=== PATIENT | male | born 1960 ===

== ENCOUNTER → 2018-04-10 | Outpatient (CLI) | payer BC ==
[~2018-04-10] MED LIST: AMLO5TAB7 PO; BUPIVACAINE MPF 0.5% 30 ML VIAL. ONE; BUPR100T8 PO; DICL50TA2 PO; IOHEXOL 180 MG/ML 10 ML VIAL. ONE; LIDOCAINE 2% PF 2ML VIAL. ONE; methylPREDNISolone ACETATE 40 MG/ML VIAL. ONE; methylPREDNISolone ACETATE 80 MG/ML VIAL. ONE
--- NOTE | 2018-04-10 13:41 | PAIN ---
DATE OF SERVICE: 04/10/2018 INITIAL CONSULTATION FOR PAIN CLINIC CHIEF COMPLAINT: Low back pain. HISTORY OF PRESENT ILLNESS: This is a 57-year-old male who presents with history of severe low back pain for approximately 1-2 years. The patient reports it is becoming worst over the past several months, worse with sitting for prolonged periods, especially driving a car and better with standing but initially but then becomes more noticeable with standing for more than about 15-20 minutes. The patient reports it is constant, throbbing, aching, across the low back, right side essentially equal to left. The patient has had some physical therapy in the past as well as chiropractic treatment exercise, which is ongoing. The patient had some trigger point injections and epidurals about 10 years ago and eventually had a lumbar diskectomy. The patient reports has been taking ibuprofen as well as diclofenac, both of which do help by about 20%-25% to decrease the pain. The patient has been doing some stretching exercises on his own recently but without significant improvement. The patient did have MRI scan of the lumbar spine showing degenerative disk disease, most pronounced broad-based but shallow disk herniation at L4-L5, multilevel facet arthrosis in lower lumbar spine with no high grade neural foraminal stenosis, however, mild bilateral neural foraminal stenosis at L3-L4 and L4-L5. The patient rates his disability rate from 0-10, 10 being the worst, is a 3 with family home responsibilities and sexual behavior, 8 with recreation, 7 with life support activities and occupation, 2 with social activity and 1 with self-care activities. The patient reports no loss of motor function but legs do seem to fatigue to a moderate extent with activity but no loss of motor function or stricture following. PAST MEDICAL HISTORY: Significant for hypertension and also arthritis. The patient also has migraine affective disorder. PAST SURGICAL HISTORY: Previous surgeries include tonsillectomy in childhood and lumbar diskectomy in 2007. CURRENT MEDICATIONS: Include bupropion, diclofenac and amlodipine. ALLERGIES: The patient has no known drug allergies. FAMILY HISTORY: Significant for no major medical problems or conditions he is aware of. SOCIAL HISTORY: The patient does not smoke, drinks 1-2 alcoholic drinks a day, does not use any illegal, illicit or recreational drugs. 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 REVIEW OF SYSTEMS: The patient's review of systems is positive for those items mentioned in history of present illness. All systems reviewed and otherwise negative. It is complete, full and well documented on the patient's chart. PHYSICAL EXAMINATION: VITAL SIGNS: His blood pressure 141/94, pulse is 75, respirations 18, temperature is 98.4 degrees Fahrenheit, height is 5 feet -1/2 inches and weight is 198 pounds. GENERAL: The patient is awake, alert, oriented, appropriate and very pleasant demeanor. HEENT: Head shows normocephalic and atraumatic. Extraocular movements are intact and symmetrical. Oral cavity: Mucous membranes moist and pink. The patient has full moustache and barbosa. NECK: Shows anterior throat supple without palpable lymphadenopathy noted. Swallow reflex is symmetrical. CHEST: Shows normal on inspection. Breath sounds clear to auscultation bilaterally. HEART: Shows S1 and S2 clear. No murmurs auscultated. ABDOMEN: Soft, nontender and nondistended. No palpable organomegaly is noted. No rebound or guarding demonstrated. BACK: Shows spine grossly in the midline. Normal appearing thoracic kyphosis and lumbar lordotic curvature. He has a well-healed surgical scar noted in the lumbar distribution. Lumbar paraspinous muscle shows symmetrical on inspection and palpation shows some moderate tenderness only in the low lumbar distribution bilaterally and only diffusely without radiation, without trigger points. The patient has good rotational motion of the lumbar spine with some moderate tenderness with bilateral rotation greater than 10 degrees, right and left as well especially with extension greater than 10 degrees with significant pain bilaterally, the lumbar, low lumbar paraspinous bilaterally. Forward flexion 45 degrees decreases this pain, is not uncomfortable for the patient. No tenderness over the sacrum or sacroiliac regions over the spinous processes. EXTREMITIES: Lower extremities show deep tendon reflexes at 2+ in the patellar, 1+ tendo-calcaneus tendons. Motor exam is strong with 5/5 dorsiflexion, extension, quadriceps and hamstring flexion. Peripheral pulses are 1+ posterior tibial. No peripheral edema is noted. Straight leg raise noted to be negative bilaterally as is Gaenslen's and Brenden's maneuvers are negative bilaterally. The patient is able to stand, stand on his toes without difficulty or loss of balance, walks with a normal-appearing gait and does not appear to favor the right lower extremity in a significant extent. SKIN: Shows normal, warm and dry. Good turgor. No edema, sores or rashes. IMPRESSION: 1. This is a 57-year-old male with approximate 1-2 year history of increasing low back pain without significant radiating pain at this time. 2. MRI scan of the lumbar spine as noted. 3. Hypertension. 4. Arthritis. PLAN: Options were discussed with the patient including conservative medical management, physical therapy, interventional techniques and he would like to pursue interventional techniques. We discussed bilateral L4-L5 and L5-S1 facet joint injections using description as well as anatomical models to describe the procedure. Risks were then discussed including, but not limited to bleeding, infection, possibility of epidural hematoma and subsequent neurological compromise, dural puncture, headaches, spinal cord and/or nerve damage, side effects of steroid medication and poor results regarding pain control. The patient understands and wished to proceed. The patient will return to the clinic in approximately 2 weeks for followup, was counseled as to return appointment, activity level and side effects to be aware of. DIAGNOSIS: Lumbar and lumbosacral spondylosis with degenerative disk disease. PROCEDURE: Bilateral L4-L5 and L5-S1 facet joint injections using C-arm fluoroscopic guidance under sterile prep and drape using local anesthetic. MEDICATION INJECTED: A total of 120 mg Depo-Medrol plus 4 mL of 0.25% bupivacaine and a total of 2 mL Isovue for contrast. CONDITION AT DISCHARGE: Stable. The patient tolerated the procedure well and had no complications. VAL OCAMPO MD DR: CARTER/bob JOB#: [id number] / [id number]
== END | disposition home or self-care (01) ==
LOC: PNCL 10:26
PROVIDERS: ATTEND Anesthesiology
DX: M47.816 Spondylosis without myelopathy or radiculopathy, lumbar region (principal); M51.36 Other intervertebral disc degeneration, lumbar region; I10 Essential (primary) hypertension; M19.90 Unspecified osteoarthritis, unspecified site; Z79.899 Other long term (current) drug therapy
CPT/HCPCS: 64493; 64494; J1030; J1040; J2001; J3490; Q9965

== ENCOUNTER → 2018-04-25 | Outpatient (CLI) | payer BC ==
[~2018-04-25] MED LIST changes: +BUPIVACAINE MPF 0.25% 10 ML VIAL. ONE; -BUPIVACAINE MPF 0.5% 30 ML VIAL. ONE
--- NOTE | 2018-04-25 17:13 | PAIN ---
DATE OF SERVICE: 04/25/2018 DIAGNOSES: Lumbar degenerative disk disease with lumbar and lumbosacral spondylosis. HISTORY OF PRESENT ILLNESS: The patient is a 57-year-old male who returns for followup status post bilateral lumbar facet joint injections, L4-L5 and L5-S1. He reports about 90% improvement up to currently. The patient reports he was doing very well until the last few days when he decided to go running, and this seems to have set the pain off to some extent in the low back bilaterally, somewhat worse on the left than the right. The patient reports still doing very well, feels that some of this maybe just myofascial, but still has aching pain in the low back, tight sensation as well, but manageable. The patient reports it does not awaken her from sleep at night frequently, but has over the past 2 days after about 6 hours of sleep. The patient reports he was decreasing his working function, household activities, recreational activities with greater ease and comfort. The patient reports pain is a 5 on a scale of 10 at its worst, 3 on average, 0 at its least and is a 3 today. The patient reports no new motor or sensory deficits, no new bowel or bladder incontinence or other complications or complaints. PHYSICAL EXAMINATION: VITAL SIGNS: Today, blood pressure 141/103, pulse 67, respirations are 16, temperature 97.7 degrees Fahrenheit, weight is 200 pounds. GENERAL: The patient is awake, alert, oriented, appropriate, very pleasant demeanor. HEENT: Head shows normocephalic, atraumatic. Extraocular movements are intact, symmetrical. Oral cavity: Mucous membranes moist and pink. Dentition intact. NECK: Shows anterior throat supple without palpable lymphadenopathy noted. Swallow reflex symmetrical. CHEST: Shows normal with inspection. Breath sounds clear to auscultation bilaterally. HEART: Shows S1, S2 clear. No murmurs auscultated. ABDOMEN: Soft, nontender, nondistended. No palpable organomegaly is noted. No rebound or guarding demonstrated. BACK: Shows spine grossly in the midline. Lumbar paraspinous muscle shows symmetrical on inspection, with palpation shows some moderate tenderness bilaterally, but only diffusely without radiation. The patient shows good rotational motion of lumbar spine with some moderate tenderness with extension and axial loading in the low back, also with a left greater than right lateral rotation greater than 10 degrees, shows some moderate tenderness in the low back itself. EXTREMITIES: The patient's lower extremities show deep tendon reflexes at 2+, patellar, 1+ tendocalcaneus tendons. Motor exam is strong with 5/5 dorsiflexion, extension, quadriceps and hamstring flexion and symmetrical. Peripheral pulses are 1+ posterior tibia. No peripheral edema is noted bilaterally. Options were discussed with the patient. The patient's old chart was reviewed as his current medication regimen updated. Current review of systems updated today as well. We will proceed with a repeat L4-L5 and L5-S1 facet joint injections today with fluoroscopic guidance. Risks were again discussed including, but not limited to bleeding, infection, possibility of epidural hematoma, subsequent neurologic compromise, dural puncture, headaches, spinal cord and/or nerve damage, side effects of steroid medication and poor results regarding pain control. The patient understands and wished to proceed. The patient to return to clinic in approximately 4 weeks for followup. He was counseled on return appointment, activity level and side effects to be aware of. DIAGNOSES: Lumbar degenerative disk disease with lumbar and lumbosacral spondylosis. PROCEDURE: Bilateral L4-L5 and L5-S1 facet joint injections using C-arm fluoroscopic guidance under sterile prep and drape using local anesthetic. MEDICATION INJECTED: A total of 120 mg Depo-Medrol, plus 4 mL of 0.25% bupivacaine and 2 mL of Isovue for contrast. CONDITION AT DISCHARGE: Stable. The patient tolerated procedure well, had no complications. VAL OCAMPO MD DR: CARTER/bob JOB#: [id number] / [id number]
== END | disposition home or self-care (01) ==
LOC: PNCL 09:28
PROVIDERS: ATTEND Anesthesiology
DX: M47.817 Spondylosis without myelopathy or radiculopathy, lumbosacral region (principal); M51.36 Other intervertebral disc degeneration, lumbar region
CPT/HCPCS: 64493; 64494; J1030; J1040; J2001; J3490; Q9965

== ENCOUNTER → 2018-05-24 | Outpatient (CLI) | payer BC ==
[~2018-05-24] MED LIST changes: -BUPIVACAINE MPF 0.25% 10 ML VIAL. ONE; -IOHEXOL 180 MG/ML 10 ML VIAL. ONE; -LIDOCAINE 2% PF 2ML VIAL. ONE; -methylPREDNISolone ACETATE 40 MG/ML VIAL. ONE; -methylPREDNISolone ACETATE 80 MG/ML VIAL. ONE
--- NOTE | 2018-05-24 15:30 | PAIN ---
DATE OF SERVICE: 05/24/2018 PROGRESS NOTE FOR PAIN CLINIC DIAGNOSIS: Lumbar degenerative disk disease with lumbar and lumbosacral spondylosis. HISTORY OF PRESENT ILLNESS: The patient is a 57-year-old male who returns for followup status post bilateral lumbar facet joint injections at L4-L5 and L5-S1 bilaterally. The patient reports he is doing very well, about 85% improvement after his last injection, which was 04/25/2018. The patient did very well. He has been increasing his activity gradually, but easily with almost no pain. The patient reports his pain is a 4 on a scale of 10 at its absolute worst, 2 with average and 0 at its least and is 0 today. The patient reports he has been increasing his activity, he has been sleeping better and walking greater distances, participating in recreational activities as well as household activities with much greater ease and comfort as well as working activity on his feet. The patient reports he sleeps well at night, does not awaken him from sleep. Reports no new motor or sensory deficits, no new bowel or bladder incontinence or other complaints. He is quite pleased with his progress thus far. The patient reports pain is aching and tight when it is there and across the low back, slightly worse on the left than the right, but again very minimal at this time. PHYSICAL EXAMINATION: VITAL SIGNS: The patient's blood pressure is 149/114, pulse 83, respirations 16, temperature 97.7 degrees Fahrenheit, height is 5 feet 9 inches, weight is 205 pounds. GENERAL: The patient is awake, alert, oriented, appropriate, very pleasant demeanor. HEENT: Head shows normocephalic, atraumatic. Extraocular movements are intact and symmetrical. Oral cavity: Mucous membranes are moist and pink. Dentition is intact. NECK: Shows anterior throat supple without palpable lymphadenopathy noted. Swallow reflex is symmetrical. CHEST: Shows normal on inspection. Breath sounds are clear to auscultation bilaterally. HEART: Shows S1, S2 clear. No murmurs auscultated. ABDOMEN: Soft, nontender, nondistended. No palpable organomegaly is noted. No rebound or guarding demonstrated. BACK: Shows spine grossly in the midline. Normal appearing thoracic kyphosis and lumbar lordotic curvature. Lumbar paraspinous muscle shows symmetrical on inspection, on palpation shows some moderate tenderness, only in the lower lumbar distribution without significant radiation. The patient has good rotational motion of lumbar spine with some minor tenderness with extension in the low lumbar spine, again worse on the left than the right, but only very minimal compared to previous exam. Right and left lateral rotation greater than 10 degrees, is performed without difficulty as is forward flexion 45 degrees without pain reported. EXTREMITIES: The patient's lower extremities show deep tendon reflexes 2+ in the patellar, 1+ tendo calcaneus tendons. Motor exam is strong with 5/5 dorsiflexion, extension, quadriceps and hamstring flexion and equal. Peripheral pulses are 1+ posterior tibia. No peripheral edema is noted bilaterally. Options were discussed with the patient. The patient's old chart was reviewed as his current medication regimen updated. Current review of systems updated today as well. We will proceed with holding any further injections at this time per patient's request, he is doing quite well. We encouraged him to increase his activity gradually and to increase activity as tolerated. The patient will return to the clinic in approximately 1 month, would like to follow up at that time or sooner if necessary. VAL OCAMPO MD DR: CARTER/bob JOB#: [id number] / [id number]
== END | disposition home or self-care (01) ==
LOC: PNCL 09:39
PROVIDERS: ATTEND Anesthesiology
DX: M51.36 Other intervertebral disc degeneration, lumbar region (principal); M47.897 Other spondylosis, lumbosacral region
CPT/HCPCS: 99212

== ENCOUNTER → 2018-06-28 | Outpatient (CLI) | payer BC ==
--- NOTE | 2018-06-28 12:38 | PAIN ---
DATE OF SERVICE: 06/28/2018 PROGRESS NOTE FOR PAIN CLINIC DIAGNOSES: 1. Lumbar degenerative disk disease with lumbar spondylosis and lumbosacral spondylosis. 2. Lumbar herniated disk. HISTORY OF PRESENT ILLNESS: The patient is a 57-year-old male who returns for followup status post bilateral facet joint injections. The patient has done very well, still reports about an 80% improvement from the facet injections, which was 04/25/2018. He has a different complaint today with some pain radiating into the left lower extremity and to the lateral anterior thigh, anterior medial thigh, medial knee and into the left gluteus as well. The patient reports it is a 3 on a scale of 10 at its worst, 1 on average and 0 at its least and is a 1 today. The patient reports it is aching, sharp, tight, sometimes shooting and dull, but sometimes stabbing and worse with walking and standing, better with sitting or lying down, awakens him from sleep occasionally, but not every night, depending if he is lying on his right or left side, usually worse on the left. The patient reports he is doing some stretching, which has not been resolving the issues significantly, although his back pain is doing much better, he has still gained about 80% improvement. The patient reports no new motor or sensory deficits, no new bowel or bladder incontinence or other complaints. PHYSICAL EXAMINATION: VITAL SIGNS: The patient's blood pressure is 170/114, pulse 78, respirations are 18, temperature 98.2 degrees Fahrenheit, height is 5 feet 9 inches, weight is 205 pounds. GENERAL: The patient is awake, alert, oriented, appropriate, very pleasant demeanor. HEENT: Head shows normocephalic, atraumatic. Extraocular movements are intact and symmetrical. Oral cavity: Mucous membranes are moist and pink. Dentition is intact. NECK: Shows anterior throat supple without palpable lymphadenopathy noted. Swallow reflex is symmetrical. CHEST: Shows normal on inspection. Breath sounds are clear to auscultation bilaterally. HEART: Shows S1, S2 clear. No murmurs auscultated. ABDOMEN: Soft, nontender, nondistended. No palpable organomegaly is noted. No rebound or guarding demonstrated. BACK: Shows spine grossly in the midline. Normal appearing thoracic kyphosis. Some mild flattening of lumbar lordotic curvature. Lumbar paraspinous muscle shows symmetrical on inspection, with palpation shows some moderate tenderness bilaterally, but only diffusely. The patient has good rotational motion, however, both laterally as well as extension and flexion, with very mild tenderness with extension, but only very minimal. No tenderness with forward flexion at 45 degrees. EXTREMITIES: Lower extremities show deep tendon reflexes 2+ in the patella and 1+ tendo calcaneus tendons. Motor exam is strong with 5/5 dorsiflexion, extension, quadriceps and hamstring flexion and equal. Peripheral pulses are 1+ posterior tibia. No peripheral edema is noted bilaterally. Options were discussed with the patient. The patient's old chart was reviewed as his current medication regimen and current review of systems updated. The patient is doing fairly well with his low back pain at this time. We discussed the findings from an MRI scan of about 04/2017 showing a small disk herniation at L4-L5 and with some radicular qualities with his pain at this time. We will try Medrol Dosepak initially to see if this may decrease the pain significantly. The patient was encouraged to maintain his activity level as tolerated. Also, continue with stretching and strengthening exercises. The patient was given instructions as well as side effects to be aware of with the medication and will follow up in approximately 2 weeks or as necessary. VAL OCAMPO MD DR: CARTER/bob JOB#: [id number] / [id number]
== END | disposition home or self-care (01) ==
LOC: PNCL 09:27
PROVIDERS: ATTEND Anesthesiology
DX: M51.36 Other intervertebral disc degeneration, lumbar region (principal); M47.897 Other spondylosis, lumbosacral region; M51.26 Other intervertebral disc displacement, lumbar region
CPT/HCPCS: G0463